=== PATIENT | male | born 1965 | race Caucasian/White ===

== ENCOUNTER → 2025-03-01 12:23 | Outpatient (CLI) | payer OTHER, SELFPAY ==
--- NOTE | 2025-03-01 12:24 | DI.RAD.S_ITS ---
PROCEDURE: XR KNEE LT 1TO2V INDICATIONS: Left knee Pain TECHNIQUE: 2 views of the knee were acquired. COMPARISON: None. FINDINGS: Bones: No fractures or dislocations. Mild to moderate medial and lateral tibiofemoral and patellofemoral compartment narrowing with associated osteophytosis. Calcification at the level of the patellar insertion of the quadriceps tendon. No suspicious bony lesions. Soft tissues: Small joint effusion. No suspicious soft tissue calcifications. IMPRESSION: KL grade 2 tricompartmental osteoarthritis without evidence of acute osseous abnormality. Small joint effusion. Dictated by: Darrin Hollins M.D. on 03/02/2025 at 1:39 Approved by: Darrin Hollins M.D. on 03/02/2025 at 1:40
--- NOTE | 2025-03-01 12:24 | DI.RAD.S_ITS ---
PROCEDURE: XR LUMBAR SPINE 2-3V INDICATIONS: Low back pain TECHNIQUE: 3 views of the lumbar spine were acquired. COMPARISON: None. FINDINGS: Bones: 5 [id number] vertebrae are present. Retrolisthesis L2 on L3 measures 0.5 cm and of L3 on L4 measures 0.3 cm. Moderate to severe disc height loss at the L1-L2 level with adjacent endplate sclerosis and anterior osteophytosis. There is otherwise normal bony alignment. No vertebral body compression fractures. No suspicious bony lesions. Soft tissues: Overlying bowel gas pattern is normal. No suspicious soft tissue calcifications. Atherosclerotic vascular calcifications. IMPRESSION: Degenerative change of the lumbar spine including multilevel spondylolisthesis without evidence of acute osseous abnormality. Dictated by: Darrin Hollins M.D. on 03/02/2025 at 1:37 Approved by: Darrin Hollins M.D. on 03/02/2025 at 1:39
== END ==
PROVIDERS: PCP Family Medicine; Referring Provider Family Medicine; Visit Provider Family Medicine
DX: M47.816 Spondylosis without myelopathy or radiculopathy, lumbar region (principal); M43.16 Spondylolisthesis, lumbar region; M17.12 Unilateral primary osteoarthritis, left knee; M25.462 Effusion, left knee; M54.50 Low back pain, unspecified; M25.562 Pain in left knee
CPT/HCPCS: 72100; 73560

== ENCOUNTER → 2025-06-17 09:41 | Outpatient (CLI) | payer OTHER, SELFPAY ==
[2025-06-17 10:36] LABS: Hematocrit 38.8 % (41-53); Hemoglobin 12.9 g/dL (13.5-17.5); Mean Corpuscular HGB Conc 33.2 % (30-36); Mean Corpuscular Hemoglobin 29.4 PG (26-34); Mean Corpuscular Volume 88.7 fL (80-100); Platelet Count 185 X10^3/uL (150-400)
[2025-06-17 10:43] LABS: Hemoglobin A1C% w Est Avg Glu 6.1 % (4.0-6.0)
[2025-06-17 10:57] LABS: Alanine Aminotransferase 30 IU/L (<50); Albumin 4.1 g/dL (3.5-5.0); Alkaline Phosphatase 70 U/L (38-126); Blood Urea Nitrogen 21 mg/dL (9-20); Calcium 8.8 mg/dL (8.4-10.2); Chloride 104 mmol/L (98-107); Cholesterol 88 mg/dL (140-199); Estimated Glomerular Filt Rate > 60 mL/min (>60); Glucose 99 mg/dL (70-99); HDL Cholesterol 35 mg/dL (40-60); HEMOLYSIS < 15 (0-50); Potassium 4.4 mmol/L (3.4-5.1); Sodium 138 mmol/L (137-145); Triglycerides 49 mg/dL (35-150)
[2025-06-17 11:08] LABS: Albumin Globulin Ratio 1.7 (1.0-2.8); Carbon Dioxide 27 mmol/L (22-32); Globulin 2.4 g/dL (1.7-4.1); Total Protein 6.5 g/dL (6.3-8.2)
[2025-06-17 11:28] LABS: TSH w/ Reflex to FT4 0.55 uIU/mL (0.47-4.68)
== END ==
LOC: LAB 09:45
PROVIDERS: PCP Family Medicine; Referring Provider Family Medicine; Visit Provider Family Medicine
DX: N52.9 Male erectile dysfunction, unspecified (principal); R73.03 Prediabetes; I10 Essential (primary) hypertension; Z79.899 Other long term (current) drug therapy; I25.10 Atherosclerotic heart disease of native coronary artery without angina pectoris
CPT/HCPCS: 36415; 80053; 80061; 83036; 84402; 84403; 84443; 85027